=== PATIENT | female | born 1980 | race Caucasian/White ===

== ENCOUNTER 2023-03-27 08:55 | Emergency (ER) | payer BC, OTHER ==
--- OUTSIDE RECORDS SUMMARY | 2023-03-27 08:59 | XMS REPORT | Continuity of Care Document ---
:1980 Author Organization [facility] t Address [address] [place] [address] [place] [id number] Care Team Providers Name Role Phone KELL FUENTES Primary Care Physician Unavailable DICKSON ORELLANA Attending Clinician Unavailable YVONNE BURR Attending Clinician Unavailable PASCALE FRANK Attending Clinician Unavailable Pascale Oliveira Attending Clinician ELVIA SHETTY Attending Clinician Unavailable Doctor Unassigned, [place] Attending Clinician Unavailable KELL FUENTES Attending Clinician Unavailable LAB90 Attending Clinician Unavailable Yoon Lorenz Attending Clinician YOON EVANS Attending Clinician Unavailable Lab, Adc Fam Pob I Attending Clinician Unavailable Victor Hugo Johnson MD Attending Clinician VICTOR HUGO JOHNSON Attending Clinician Unavailable Ilia Serrano DO Attending Clinician Irineo Kell BUENROSTRO Attending Clinician [phone] PASCALE FRANK Admitting Clinician Unavailable Payers Payer Name Policy Type Policy Number Effective Date Expiration Date S zuly [employer] [place] [id number] 2022 00:00:00 WOMEN Problems Condition Condition Condition Status Onset Resolution Last Treating Co mments Source Name Details Category Date Date Treatment Clinician Date BMI BMI Disease Active Univers 30.0-30.9, 30.0-30.9, 5-06 it y of adult adult 00:00: [place] 00 Medical Branch Class 1 Class 1 Disease Active Univers obesity obesity 2-12 [place] of with body [place] mass index 00 Me dical (BMI) of (BMI) of Branch 30.0 to 30.0 to 30.9 in 30.9 in adult, adult, unspecifie unspecifie d obesity d obesity type, type, unspecifie unspecifie d whether d whether serious serious comorbidit comorbidit y present y present Well woman Well woman Disease Active U nivers exam (no exam (no 2-12 ity of gynecolog[place] gy[place]olog[place] pe[place] exam[place] perez exam[place] 00 Medi perez Branch Hypertensi Hypertensi Disease Active U nivers on, on, 2-12 ity of essential[place] benign benign 00 Medical [place] Breakthrou Breakthrou Disease Active U nivers gh gh 2-12 ity of bleeding bleeding 00:00: [place] with with 00 Medical NuvaRing NuvaRing Branch Allergies, Adverse Reactions, Alerts Allergy Allergy Status Severity Reaction(s) Onset Inactive Treating Comm ents Source Name Type Date Date Clinician NO KNOWN Drug Active Univers ALLERGIE Class ity of S [place] [facility] [place] Social History Social Habit Start Date Stop Date Quantity Comments Source History [facility] o f Alcohol Comment [place] [facility] History of Cigarette Smoker Jayla Gardner eybold - tobacco use External Alcohol intake 2022-10-22 2022-10-22 Current drinker Unive rsity of 00:00:00 00:00:00 of alcohol [place] [facility] (finding) Branch Exposure to 2022-01-12 2022-01-22 Not sure University of SARS-CoV-2 00:00:00 11:38:00 [facility] (event) Branch Tobacco use and 2020-10-31 2020-10-31 Smokeless tobacco Un iversity of exposure 00:00:00 00:00:00 non-user [place] [facility] History [facility] 2020-10-31 2020-10-31 2 University o f Alcohol Frequency 00:00:00 00:00:00 [place] [facility] History [facility] 2020-10-31 2020-10-31 99 University o f Alcohol Std 00:00:00 00:00:00 [facility] Drinks [place] History SDOH 2020-10-31 2020-10-[address] [place] [address] o f Alcohol Binge 00:00:00 00:00:00 [facility] [place] [facility] al [place] Sex Assigned At [birth year] Jayla Mojica ybold - 00:00:00 00:00:00 External Smoking Status Start Date Stop Date Source Ex-smoker 2022-11-16 00:00:00 2022-11-16 00:00:00 Jayla sanfordbold - External Never smoked tobacco [facility] Medications Ordered Filled Start Stop Current Ordering Indication Dosage Frequency Signature Comments Components Source Medication Medication Date Date Medication? Clinician (SIG) Name Name Albuterol Yes [id number] 1{puff} Q4H Inhale 1-2 Jayla HFA 2-28 puffs into Seybold (VENTOLIN 00:00: the lungs - HFA) 108 00 every 4 Externa (90 Base) hours as l MCG/ACT IN needed for AERS wheezing Lisinopril Yes [id number] 10mg Take 1 K elsey 10 MG oral 2-28 tablet (10 Sey bold Tablet 00:00: mg total) - 00 by mouth Externa daily l Budesonide Yes [id number] 1{puff} Inhale 1 Jayla 180 MCG/ACT 2-28 puff into Sey bold inhalation 00:00: the lungs - AEROSOL 00 2 times Externa POWDER, daily l BREATH ACTIVATED Montelukast Yes [id number] 10mg Take 1 Jayla (Singulair) 2-28 tablet (10 Se ybold 10 MG oral 00:00: mg total) - Tablet 00 by mouth Externa tablet nightly l Albuterol 2022- No 1{puff} Q4H Inhale 1-2 Jayla HFA 2-08 02-28 puffs into Seybold (VENTOLIN 00:00: 00:00 the lungs - HFA) 108 00 :00 every 4 Externa (90 Base) hours as l MCG/ACT IN needed for AERS wheezing Lisinopril 2022-0 2022- No [id number] 10mg Take 1 Jayla 10 MG oral 1-18 02-28 tablet (10 Se ybold Tablet 00:00: 00:00 mg total) - 00 :00 by mouth Externa daily l albuterol Yes Univers 90 5-06 ity of mcg/actuati 11:42: [place] on inhaler 31 Medical Branch albuterol Yes Univers 90 5-06 ity of mcg/actuati 11:42: [place] on inhaler 31 Medical Branch valACYclovi Yes Univer s r 1 gram 9-21 ity of tablet 00:00: [place] 00 Medical Branch valACYclovi Yes Univer s r 1 gram 9-21 ity of tablet 00:00: [place] 00 Medical Branch ciprofloxac 2021- No TAKE 1 Uni vers in HCl 500 06-08 TABLET BY ity of mg tablet 00:00: 00:00 MOUTH [place] 00 :00 TWICE A Medical DAY UNTIL Branch ALL TAKEN inhaler,ass Yes Univer s ist 2-12 ity of device,acce 10:10: [place] [id number] Medical (INHALER, Branch SIST DEVICES,ACC ESS MISC) LISINOPRIL Yes 20mg Take 20 mg U nivers ORAL 2-12 by mouth. ity of 10:10: [address] inhaler,ass Yes Univer s ist 2-12 ity of device,acce 10:10: [place] [id number] Medical (INHALER, Branch SIST DEVICES,ACC ESS MISC) LISINOPRIL Yes 20mg Take 20 mg U nivers ORAL 2-12 by mouth. ity of 10:10: [address] Branch E[place]og[place]re 2022- No 1{each} Place 1 Jayla l-Ethinyl 10-31 each Seybold Estradiol 00:00: 00:00 vaginally - 0.12-0.015 00 :00 once a Externa MG/24HR month l vaginal RING NUVARING 2021- No [id number] 1{each} Insert 1 Univers 0.12-0.015 12 -06 Each into ity of mg/24 hr 00:00: 00:00 vagina [place] vaginal 00 :00 once every Medica l insert month. Branch Insert vaginally and leave in place for 3 consecutiv e weeks, then remove for 1 week. Immunizations Ordered Filled Immunization Date Status Comments [facility] e Immunization Name Name SARS-COV-2 COVID-19 2021-01-09 Completed Unive rsity of MODERNA VACCINE 00:00:00 [facility] SARS-COV-2 COVID-19 2021-01-09 Completed Unive rsity of MODERNA 12+ YRS 00:00:00 [facility] VACCINE Branch Covid-19 Vaccine 2021-01-09 Completed Jayla sanfordbold - Moderna (Spikevax), 00:00:00 Exter nal Mrna-lnp, [place] Protein, Pf SARS-COV-2 COVID-19 2020-12-05 Completed Unive rsity of MODERNA VACCINE 00:00:00 [facility] SARS-COV-2 COVID-19 2020-12-05 Completed Unive rsity of MODERNA 12+ YRS 00:00:00 [facility] VACCINE Branch Covid-19 Vaccine 2020-12-05 Completed Jayla lua - Moderna (Spikevax), 00:00:00 Exter nal Mrna-lnp, [place] Protein, Pf Vital Signs Vital Name Observation Time Observation Value Comments Source Systolic blood 2022-11-16 15:36:00 120 mm[Hg] Jayla Willams - pressure External Diastolic blood 2022-11-16 15:36:00 78 mm[Hg] Wanda Willams - pressure External Heart rate 2022-11-16 15:36:00 120 /min Jayla lua - External Body temperature 2022-11-16 15:36:00 37.39 Corrie Coco Willams - External Body height 2022-11-16 15:36:00 160 cm Jayla lua - External Body weight 2022-11-16 15:36:00 81.194 kg Jayla lua - External BMI 2022-11-16 15:36:00 31.71 kg/m2 Jayla lua - External Systolic blood 2022-01-22 16:38:00 120 mm[Hg] Univer sity of pressure [facility] Diastolic blood 2022-01-22 16:38:00 89 mm[Hg] Unive rsity of pressure [facility] Heart rate 2022-01-22 16:38:00 90 /min [facility] Body temperature 2022-01-22 16:38:00 36.94 Corrie [facility] Respiratory rate 2022-01-22 16:38:00 18 /min [facility] Body height 2022-01-22 16:38:00 160 cm [facility] Body weight 2022-01-22 16:38:00 77.973 kg [facility] BMI 2022-01-22 16:38:00 30.45 kg/m2 [facility] Procedures This patient has no known procedures. Encounters Start End Encounter Admission Attending Care Care Encounter Source Date/Time Date/Time Type Type Clinicians Facility Department ID 2022-11-30 2022-11-30 Outpatient JAYLA ORELLANA [id number] Jayla 00:00:00 00:00:00 DICKSON dudley 2022-11-16 2022-11-16 Outpatient JAYLA ORELLANA [id number] Jayla 09:30:00 09:30:00 DICKSON dudley 2022-10-30 2022-10-30 Outpatient JAYLA ORELLANA [id number] Jayla 00:00:00 00:00:00 DICKSON dudley 2022-10-27 2022-10-27 Outpatient JAYLA ORELLANA [id number] Jayla 00:00:00 00:00:00 DICKSON dudley 2022-10-24 2022-10-24 Outpatient JAYLA BURR [id number] Jayla 00:00:00 00:00:00 YVONNE dudley 2022-10-22 2022-10-22 Outpatient Norma FRANK [facility] RAD [id number] Univers 10:31:13 23:59:00 PASCALE tam [facility] 2022-10-22 2022-10-22 Outpatient Norma FRANK IADOT RAD [id number] Univers 10:31:13 23:59:00 PASCALE tam [facility] 2022-10-22 2022-10-22 [facility] Meet [facility] [id number] Univers 10:31:13 23:59:00 Encounter Yolandelloyd Green COMPTON [id number] ity [facility] [id number] [facility] [phone] [address] 2022-10-06 2022-10-06 Outpatient JAYLA ORELLANA [id number] Jayla 00:00:00 00:00:00 DICKSON Seybol d 2022-09-27 2022-09-27 Outpatient JAYLA BURR [id number] Jayla 00:00:00 00:00:00 YVONNE Seybol d 2022-09-07 2022-09-07 Outpatient JAYLA BURR [id number] Jayla 00:00:00 00:00:00 YVONNE Seybol d 2022-08-25 2022-08-25 Outpatient PREJAYLA PONCE [id number] Jayla 00:00:00 00:00:00 YVONNE Seybol d 2022-07-05 2022-07-05 Outpatient PREJAYLA PONCE [id number] Jayla 00:00:00 00:00:00 YVONNE Seybol d 2022-05-31 2022-05-31 Outpatient Norma FRANK [facility] [id number] Univers 00:00:00 00:00:00 PASCALE tam [facility] 2022-02-19 2022-02-19 Outpatient JAYLA ORELLANA [id number] Jayla 10:00:00 10:00:00 DICKSON Seybol octavia 2022-01-22 2022-01-22 Outpatient Norma FRANK [facility] [id number] Univers 11:00:00 12:09:03 PASCALE hinds o anel [facility] 2022-01-22 2022-01-22 [facility] [id number] Univers 11:00:00 12:09:03 Visit Pascale Green SONG LYRICIST [id number] ity [facility] [id number] Micah as MATERNAL [id number] [facility] ical & CHILD [address] [place] [address] 2022-01-22 2022-01-22 Orders Doctor BRANDEE [id number] Univers 00:00:00 00:00:00 Only Unassigned, MARTHA [id number] [facility] [id number] Micah as [id number] [address] 2022-01-01 2022-01-01 Outpatient R IRINEO [facility] [id number] Univers 09:30:00 09:30:00 KELL ity o f [facility] 2021-07-17 2021-07-17 Outpatient LAB90 JAYLA PROCTOR [id number] Jayla 08:25:00 08:25:00 Carri dudley 2021-07-03 2021-07-03 [facility] [id number] Univers 13:05:52 13:29:54 Visit Yoon Miramontes SONG LYRICIST [id number] it y of [facility] [id number] Micah as MATERNAL [id number] Med ical & CHILD 107 [facility] 2021-07-03 2021-07-03 Outpatient R NATHAN [facility] [id number] Univers 13:15:00 13:15:00 YOON hinds [facility] 2021-06-12 2021-06-12 Outpatient R NATHAN [facility] [id number] Univers 13:45:00 13:45:00 YOON guzman [facility] 2021-06-12 2021-06-12 [facility] [id number] Univers 13:45:00 13:45:00 YOON hinds [facility] 2021-04-24 2021-04-24 Laboratory Lab, Adc Fam Pob I [facility] [id number] Univers 10:33:23 10:53:23 Only Victor Hugo Johnson [facility] [id number] ity [facility] [id number] Micah as Professio [phone] Pr dical nal [address] [place] [address] 2021-04-24 2021-04-24 Outpatient R MARIA ELENA [facility] [id number] Univers 10:20:00 10:20:00 VICTOR HUGO ity of [facility] 2020-12-04 2020-12-04 Patient Zach [facility] [id number] Univers 00:00:00 00:00:00 Outreach Ilia PRIMARY [id number] i ty of [facility] [id number] [place] JOYCE [phone] Pr dical [address] [place] [address] 2020-11-19 2020-11-19 Outpatient R IRINEO, [facility] [id number] Univers 00:00:00 00:00:00 KELL woodward [facility] 2020-10-31 2020-10-31 Office [facility] [id number] Univers 09:40:02 10:49:57 Visit Kell Monreal SONG LYRICIST [id number] ity of [facility] [id number] Micah as MATERNAL [id number] [facility] ical & CHILD [address] [place] [address] 2020-10-31 2020-10-31 Outpatient R IRINEO [facility] [id number] Univers 09:30:00 10:49:57 KELL woodward [facility] 2020-10-31 2020-10-31 Outpatient R IRINEO [facility] [id number] Univers 09:30:00 09:30:00 KELL woodward [facility] 2020-10-31 2020-10-31 Orders Doctor BRANDEE [id number] Univers 00:00:00 00:00:00 Only Unassigned, MARTHA [id number] ity of [place] [facility] [id number] Micah as [id number] [address] 2020-10-03 2020-10-03 Outpatient R IRINEO [facility] [id number] Univers 09:30:00 09:30:00 KELL woodward [facility] Results This patient has no known results.
[2023-03-27] MEDS ORDERED: NA CHLORIDE 0.9% 1,000 ML ONE (09:49)
[2023-03-27] MEDS ORDERED: KETOROLAC 30 MG/ML INJ ONE (09:49)
[2023-03-27 10:09] LABS: SARS-CoV-2 Antigen Rapid Res Negative (Negative)
--- NOTE | 2023-03-27 10:14 | ER ---
Nurse's Notes [facility] Name: Aziza Weaver Age: 42 yrs Sex: Female : 1980 Arrival Date: 03/27/2023 Time: 08:55 Bed 5 Private MD: Diagnosis: Influenza due to other identified influenza virus with other respiratory manifestations Presentation: 03/27 09:10 Chief complaint: Body aches, sore throat, chills, nausea, headache, and generalized hb weakness x 1 week. Coronavirus screen: Client presents with at least one sign or symptom that may indicate coronavirus-19. Provider contacted for isolation considerations. Ebola Screen: No symptoms or risks identified at this time. Initial Sepsis Screen: Does the patient meet any 2 criteria? No. Patient's initial sepsis screen is negative. Does the patient have a suspected source of infection? No. Patient's initial sepsis screen is negative. Risk Assessment: Do you want to hurt yourself or someone else? Patient reports no desire to harm self or others. Onset of symptoms was March 20, 2023. 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 - Social history:: Smoking status: Patient denies any tobacco usage or history of. Screenin:32 [facility] ED Fall Risk Assessment (Adult) History of falling in the last 3 months, ap3 including since admission No falls in past 3 months (0 pts). Abuse screen: Denies threats or abuse. Nutritional screening: No deficits noted. Tuberculosis screening: No symptoms or risk factors identified. Assessment: 09:11 General: Appears in no apparent distress. Behavior is calm, cooperative, appropriate ap3 for age. Pain: Complains of pain in throat Pain currently is 5 out of 10 on a pain scale. Neuro: Level of Consciousness is awake, alert, obeys commands, Oriented to person, place, time, situation, Gait is steady. Neuro: Reports weakness. Cardiovascular: Patient's skin is warm and dry. Respiratory: Airway is patent Respiratory effort is even, unlabored, Respiratory pattern is regular, symmetrical. Vital Signs: 09:10 BP 120 / 91; Pulse 73; Resp 16; Temp 97.9(O); Pulse Ox 99% on R/A; Weight 74.84 kg; hb Height 5 ft. 3 in. ; Pain 5/10; 09:10 Body Mass Index 29.23 (74.84 kg, 160.02 cm) hb 09:10 Pain Scale: Adult hb ED Course: 08:59 Patient arrived in ED. im 08:59 [facility] sb[facility] 08:59 Rojas Aiken MD is Attending Physician. sb4 09:05 Grace Murcia, RN is Primary Nurse. ap3 09:11 Triage completed. hb 09:32 Arm band placed on right wrist. ap3 09:32 Patient has correct armband on for positive identification. Call light in reach. Side ap3 rails up X 1. Door closed. Noise minimized. 09:45 Inserted saline lock: 20 gauge in right antecubital area, using aseptic technique. ap3 10:22 No provider procedures requiring assistance completed. IV discontinued, intact, ap3 bleeding controlled, No redness/swelling at site. Pressure dressing applied. Administered Medications: 09:45 Drug: Ketorolac IVP 15 mg Route: IVP; Site: right antecubital; ap3 10:23 Follow up: Response: No adverse reaction ap3 09:45 Drug: NS 0.9% IV 1000 ml Route: IV; Rate: 1 bolus; Site: right antecubital; ap3 10:22 Follow up: IV Status: Completed infusion ap3 Medication: 09:33 VIS not applicable for this client. ap3 Outcome: 10:13 Discharge ordered by . sb4 10:23 Discharged to home ambulatory. ap3 10:23 Condition: good 10:23 Discharge instructions given to patient, Instructed on discharge instructions, follow up and referral plans. medication usage, Demonstrated understanding of instructions, follow-up care, medications, Prescriptions given X 3. 10:23 Patient left the ED. ap3 Signatures: Sarah Morgan RN RN Grace Murcia RN RN ap3 Nella Steele PA-C PA-C sb4 Jennifer Smith im
--- NOTE | 2023-03-27 10:14 | EDPHYS ---
Physician Documentation [facility] Name: Aziza Weaver Age: 42 yrs Sex: Female : 1980 Arrival Date: 03/27/2023 Time: 08:55 Bed 5 Private MD: JILLIAN Physician Rojas Aiken HPI: 03/27 09:29 This 42 yrs old Female presents to ER via Ambulatory with complaints of Flu Symptoms, sb4 General Weakness. 09:29 Onset: The symptoms/episode began/occurred 1 week(s) ago. Associated signs and sb4 symptoms: Pertinent positives: congestion, cough, sore throat, weakness, nausea, Pertinent negatives: abdominal pain, chest pain, dysuria, fever, seizure, vomiting. Modifying factors: The patient symptoms are alleviated by nothing, the patient symptoms are aggravated by eating food. 42 year old female with asthma and hypertension presents with 1 week of worsening flu like symptoms. States she was around someone with similar symptoms but hers have persisted. reports nausea, weakness, sore throat. no fever, chest pain, abdominal pain, shortness of breath. [employer]: 10:23 LMP N/A - Irregular menses ap3 Historical: - Allergies: 09:11 No Known Allergies; hb - Home Meds: 09:11 Lisinopril Oral [Active]; hb - PMHx: 09:11 Asthma; Hypertension; hb - PSHx: 09:11 Appendectomy; Breast Augmentation; hb - Immunization history:: Client reports having NOT received the Covid vaccine. - Social history:: Smoking status: Patient denies any tobacco usage or history of. ROS: 09:29 Cardiovascular: Negative for chest pain, palpitations, and edema, Respiratory: Negative sb4 for shortness of breath, cough, wheezing, and pleuritic chest pain, Back: Negative for injury and pain, MS/Extremity: Negative for injury and deformity, Skin: Negative for injury, rash, and discoloration, Neuro: Negative for headache, weakness, numbness, tingling, and seizure. 09:29 Constitutional: Positive for body aches, chills, fatigue, malaise, poor PO intake. 09:29 ENT: Positive for sinus congestion, sore throat, Negative for drainage from ear(s), difficulty handling secretions. 09:29 All other systems are negative. Exam: 09:29 Constitutional: This is a well developed, well nourished patient who is awake, alert, sb4 and in no acute distress. Head/Face: Normocephalic, atraumatic. Eyes: Extra-ocular motions intact. Periorbital areas with no swelling, redness, or edema. ENT: Mucous membranes moist. Cardiovascular: Regular rate and rhythm with a normal S1 and S2. Respiratory: Lungs have equal breath sounds bilaterally, clear to auscultation and percussion. No rales, rhonchi or wheezes noted. No increased work of breathing, no retractions or nasal flaring. Abdomen/GI: Soft, non-tender, no distension. Skin: Warm, dry with normal turgor. Normal color with no rashes, no lesions, and no evidence of cellulitis. MS/ Extremity: Pulses equal, no cyanosis. Neurovascular intact. Full, normal range of motion. Neuro: Awake and alert, GCS 15, oriented to person, place, time, and situation. Cranial nerves II-XII grossly intact. Motor strength 5/5 in all extremities. Sensory grossly intact. Cerebellar exam normal. Normal gait. Vital Signs: 09:10 BP 120 / 91; Pulse 73; Resp 16; Temp 97.9(O); Pulse Ox 99% on R/A; Weight 74.84 kg; hb Height 5 ft. 3 in. ; Pain 5/10; 09:10 Body Mass Index 29.23 (74.84 kg, 160.02 cm) hb 09:10 Pain Scale: Adult hb MDM: 09:00 Patient medically screened. sb4 09:29 Differential diagnosis: viral Infection, bacterial infection, URI, bronchitis, strep, sb4 covid, flu, tonsilitis. 10:12 Data reviewed: vital signs, nurses notes, lab test result(s), Flu: positive and as a sb4 result, I will discharge patient. I considered the following discharge prescriptions or medication management in the emergency department Antibiotics: At this time antibiotics are not recommended, Antivirals: At this time, antivirals are not recommended. Test considered but Not performed: Labs: not indicated. X-ray: chest, not indicated. Counseling: I had a detailed discussion with the patient and/or guardian regarding: the historical points, exam findings, and any diagnostic results supporting the discharge/admit diagnosis, lab results, to return to the emergency department if symptoms worsen or persist or if there are any questions or concerns that arise at home. Medication response: Toradol partially relieved the patient's pain. 03/27 09:16 Order name: SARS-COV-2 Antigen Rapid; Complete Time: 10:10 sb4 03/27 09:16 Order name: Flu; Complete Time: 10:10 sb4 03/27 09:16 Order name: Strep sb4 03/27 10:03 Order name: Throat Culture EDDE 03/27 09:16 Order name: IV Saline Lock; Complete Time: 09:45 sb4 Administered Medications: 09:45 Drug: Ketorolac IVP 15 mg Route: IVP; Site: right antecubital; ap3 10:23 Follow up: Response: No adverse reaction ap3 09:45 Drug: NS 0.9% IV 1000 ml Route: IV; Rate: 1 bolus; Site: right antecubital; ap3 10:22 Follow up: IV Status: Completed infusion ap3 Disposition Summary: 03/27/23 10:13 Discharge Ordered Location: Home sb4 Problem: an ongoing problem sb4 Symptoms: have improved sb4 Condition: Stable sb4 Diagnosis - Influenza due to other identified influenza virus with other respiratory sb4 manifestations Followup: sb4 - With: Private Physician - When: As needed - Reason: Recheck today's complaints, Continuance of care, Re-evaluation by your physician Discharge Instructions: - Discharge Summary Sheet sb4 - Influenza, Adult sb4 Forms: - Work release form sb4 - Medication Reconciliation Form sb4 - Thank You Letter sb4 - Antibiotic Education sb4 - Prescription Opioid Use sb4 - [email or web address] sb4 Prescriptions: - Zofran 4 mg Oral Tablet - take 1 tablet by ORAL route every 12 hours As needed; 6 tablet; Refills: 0, sb4 Product Selection Permitted - Tessalon Perles 100 mg Oral Capsule - take 1 capsule by ORAL route every 8 hours As needed; 15 capsule; Refills: 0, sb4 Product Selection Permitted - Medrol (Richar) 4 mg Oral Tablets, Dose Pack - take 1 tablet by ORAL route as directed - follow package instructions; 1 sb4 packet; Refills: 0, Product Selection Permitted Signatures: Dispatcher [employer] EDSarah Gonzalez RN RN hb Prokisch, Amanda, RN RN ap3 Brown, Nella, PA-C PA-C sb4
[2023-03-27 11:17] VITALS: BP 120/91; TEMP 97.9; O2SAT 99
== END 2023-03-27 10:23 | disposition home or self-care (01) ==
LOC: ER 08:55
DX: J10.1 Influenza due to other identified influenza virus with other respiratory manifestations (principal); I10 Essential (primary) hypertension; Z98.82 Breast implant status; Z20.822 Contact with and (suspected) exposure to COVID-19
CPT/HCPCS: 96361; 87070; 36415; 87081; 87804 ×2; 96374; 99284; 87811; J7030